=== PATIENT | male | born 1950 | race Two or more races ===

== ENCOUNTER 2016-09-13 20:25 | Observation (INO) | payer OTHER ==
--- NOTE | 2016-09-13 20:59 | CPEKG ---
Heart Rate: 65 RR Interval: 923 P-R Interval: 184 QRSD Interval: 102 QT Interval: 404 QTC Interval: 421 P Quinton: 21 QRS Quinton: 34 T Wave Quinton: 32 EKG Severity - BORDERLINE ECG - EKG Impression: SINUS RHYTHM EKG Impression: BORDERLINE INFERIOR Q WAVES Electronically Signed By: Vanesa Enrique 13-Sep-2016 23:36:50
--- NOTE | 2016-09-13 21:17 | EDPHY ---
H & P Stated Complaint: x 3 days-WATSON, SOB, bilat n/t to hands Time Seen by Provider: 09/13/16 21:13 HPI/ROS: CHIEF COMPLAINT: Chest pain. HISTORY OF PRESENT ILLNESS: This patient is a 66 year old male with a history of CAD with stenting who presents to the Emergency Department complaining of intermittent episodes of chest pain beginning three days prior to arrival. Pain lasts for one to two hours. Today he developed pain about 2 hr prior to presentation.He describes his pain as localized to his left anterior chest without radiation and associated with headache, dyspnea, diaphoresis, and palpitations. His pain is similar to prior episodes that precipitated need for stent placement. He denies nausea, vomiting, fever, cough, or additional complaints. No recent medication changes. No history of blood clots. Medical history also includes diabetes and hypertension. REVIEW OF SYSTEMS: Aside from elements discussed in the HPI, a comprehensive 10-point review of systems was reviewed and is negative. PAST MEDICAL HISTORY: Hypertension, diabetes, CAD with stenting. No anticoagulant use. SOCIAL HISTORY: ; at bedside. PHYSICAL EXAM: VITAL SIGNS: Reviewed by me GENERAL: Well-developed, well-nourished, resting comfortably in no respiratory distress. HEENT: Atraumatic. Eyes: No icterus, no injection. Mouth: moist mucous membranes. No erythema or lesions. Neck: supple with no adenopathy. LUNGS: Clear to auscultation bilaterally, no wheezes, rhonchi or rales. CARDIAC: Regular rate and rhythm, no rubs, murmurs or gallops. ABDOMEN: Soft, nontender, nondistended, bowel sounds normal. BACK: No CVA tenderness. EXTREMITIES: No trauma. No edema. Range of motion is normal throughout. NEURO: Alert and oriented, grossly nonfocal. SKIN: Warm and dry, no rash. PSYCHIATRIC: Normal mentation, no agitation. Portions of this note were transcribed by a medical technologist chemistry. I personally performed a history, physical exam, medical decision making, and confirmed accuracy of information the transcribed note. - Personal History Current Tetanus/Diphtheria Vaccine: Unsure Current Tetanus Diphtheria and Acellular Pertussis (TDAP): Unsure - Medical/Surgical History Hx Asthma: No Hx Chronic Respiratory Disease: No Hx Diabetes: Yes Hx Cardiac Disease: Yes Hx Renal Disease: No Hx Cirrhosis: No Hx Alcoholism: No Hx HIV/AIDS: No Hx Splenectomy or Spleen Trauma: No Other PMH: HTN, DM, high cholesterol, cardiac stent, hernia repair, shoulder surgery, back surgery - Social History Smoking Status: Never smoked Constitutional: Initial Vital Signs Temperature (C) 36.8 C 09/13/16 20:41 Heart Rate 69 09/13/16 20:41 Respiratory Rate 16 09/13/16 20:41 Blood Pressure 176/95 H 09/13/16 20:41 O2 Sat (%) 96 09/13/16 20:41 O2 Delivery Mode Room Air Allergies/Adverse Reactions: No Known Allergies Allergy (Verified 09/13/16 20:39) Home Medications: Medication Instructions Recorded Aspirin [Aspirin 81mg (*)] 81 mg PO DAILY 09/14/16 Insulin Detemir [Levemir Flextouch] 10 - 15 unit SQ HS 09/14/16 Lisinopril [Zestril 20 mg (*)] 20 mg PO DAILY 09/14/16 Lovastatin 40 mg PO DAILY 09/14/16 Metoprolol Tartrate 25 mg PO BID #60 tablet 09/14/16 metFORMIN HCL [Glucophage 500 mg 1,000 mg PO BIDMEAL 09/14/16 (*)] Medical Decision Making - Diagnostics EKG Interpretation: 12-LEAD EKG: Please see the full report in [facility]. My interpretation: Normal sinus rhythm, rate 65; borderline inferior Q waves. Imaging: X-ray: Chest x-ray was obtained. I viewed the images myself on the PACS system. My interpretation of the images is: normal chest. The study was read by Dr. Parish Franco. I discussed the x-ray findings with the patient. Study: CT of the head Indication: Headache Results: CT scan of the head was obtained. The results of the study are: negative. The study was read by the radiologist, Dr. Parish Franco. I viewed the images myself on the PACS system. ED Course/Re-evaluation: Plan for labs, EKG, chest x-ray, and CT of the head. Labs are unremarkable. D-dimer and Troponin are both negative. EKG indicates no ischemic changes. 2229: Imaging results reported to me by Dr. Franco. 324mg PO Aspirin administered. 2238: On reevaluation, the patient reports that his pain has subsided. Repeat BP is within normal ranges. I discussed with the patient my recommendation that he be admitted for cardiac observation given his history. He is agreeable to this. 2240: Consultation with Dr. Ekaterina Lockwood, hospitalist, who accepts admission. Differential Diagnosis: Differential diagnoses for the patient's symptom complex was considered including but not limited to acute coronary syndrome, hypertensive, pulmonary embolism, chest wall pain, pleural inflammation and pulmonary infectious causes. Consult/Admit Bed Type: Dr Gayle Renner, [facility] - Data Points Laboratory Results: Laboratory Results 09/13/16 21:00 09/13/16 21:00 Medications Given: Discontinued Medications Acetaminophen (Tylenol) 650 mg PO Q6HRS PRN PRN Reason: Pain, Mild/Fever, Can Take PO Stop: 03/12/17 23:10 Last Admin: 09/14/16 14:52 Dose: 650 mg Aspirin (Aspirin) 324 mg PO EDNOW ONE Stop: 09/13/16 22:40 Last Admin: 09/13/16 22:46 Dose: 324 mg Insulin Human Lispro (Humalog Lispro) 0 unit SC TIDMEAL COLLEEN PRN Reason: Protocol Stop: 03/13/17 07:59 Last Admin: 09/14/16 12:28 Dose: 2 unit Departure - Departure Disposition: [facility] Inpatient Acute Clinical Impression: Chest pain, Headache Condition: Fair
[2016-09-13 21:48] LABS: INR 1.01 (0.83-1.16); PROTIME(PATIENT) 13.2 SEC (12.0-15.0)
[2016-09-13 21:49] LABS: APTT 31.4 SEC (23.0-38.0)
[2016-09-13 21:50] LABS: ANION GAP 11 mEq/L (8-16); CALCIUM 9.2 mg/dL (8.5-10.4); CARBON DIOXIDE 25 mEq/l (22-31); CHLORIDE 105 mEq/L (97-110); CREATININE 0.8 mg/dL (0.7-1.3); GLOMERULAR FILTRATION RATE > 60; GLUCOSE 173 mg/dL (70-100); POTASSIUM 4.2 mEq/L (3.5-5.2); SODIUM 141 mEq/L (134-144)
[2016-09-13 21:52] LABS: % IMMATURE GRANULYOCYTES 0.3 % (0.0-1.1); ABSOLUTE IMMATURE GRANULOCYTES 0.03 10^3/uL (0.00-0.10); ADD DIFF? NO; ADD MORPH? NO; ADD SCAN? NO; ATYPICAL LYMPHOCYTE FLAG 0 (0-99); FRAGMENT RBC FLAG 0 (0-99); HEMATOCRIT 45.5 % (40.0-51.0); HEMOGLOBIN 15.6 g/dL (13.7-17.5); LEFT SHIFT FLG 0 (0-99); LIPEMIA HEMOLYSIS FLAG 90 (0-99); MEAN CELL HEMOGLOBIN 30.8 pg (27.9-34.1); MEAN CELL HEMOGLOBIN CONCENTR. 34.3 g/dL (32.4-36.7); MEAN CELL VOLUME 89.7 fL (81.5-99.8); PLATELET CLUMPS FLAG 0 (0-99); PLATELET COUNT 220 10^3/uL (150-400); RED BLOOD CELL COUNT 5.07 10^6/uL (4.40-6.38); RED CELL DISTRIBUTION WIDTH 12.5 % (11.5-15.2)
[2016-09-13 22:02] LABS: TROPONIN I < 0.012 ng/mL (0-0.034)
--- NOTE | 2016-09-13 22:08 | DX ---
PA and Lateral Chest Indication: Chest pain Comparison: None Findings: The lungs are clear. No pneumothorax, consolidation, edema or effusion. The descending thor acic aorta is mildly tortuous. The heart size normal. No discernible rib fracture. Minimal bilateral clavicular osteoarthritis. A radiodensity overlying the right humeral head may be a suture anchor. Impression: Clear lungs. No acute process.
--- NOTE | 2016-09-13 22:38 | CT ---
CT Head (Without Contrast) 22:21pm Indication: Headache. Hypertension.. Comparison: None Technique: Standard noncontrast head CT protocol utilizing 5 mm thick collimated slices and field of view of 23 cm. Dose reduction techniques were utilized. Findings: No intracranial hemorrhage, mass lesion, swelling, or extraaxial fluid collection. The vent ricles are normal caliber and midline. Minimal atrophy is evidenced by enlargement of the overlying s ulci and subarachnoid spaces. The guthrie and white matter has normal attenuation. No evidence of ischem ia. The bones are unremarkable. The paranasal sinuses are clear. Impression: Negative. No intracranial hemorrhage or swelling. Comment: Case was discussed with Dr. Enrique at 10:36 p.m. September 13, 2016.
[2016-09-13] MEDS ORDERED: ASPIRIN 81 MG CHEWABLE TAB PO ONE (22:39)
[2016-09-13] MEDS ORDERED: ONDANSETRON 4 MG/2 ML VIAL IVP PRN (23:11)
[2016-09-13] MEDS ORDERED: NITROGLYCERIN 0.4 MG BTL SL PRN (23:11)
[2016-09-13] MEDS ORDERED: D50W 25 GM/50 ML SYR IVP PRN (23:14)
--- NOTE | 2016-09-13 23:52 | PDGENHP ---
History and Physical - Chief Complaint chest pain, headache - History of Present Illness Patient is a 66-year-old male with a history of hypertension, hyperlipidemia, chronic back pain, DM2 on insulin and CAD with 1 previous stent who presents ED with complaint of headache and chest pain. Patient states symptoms started about 3 days ago with intermittent sensation of palpitations in his L chest radiating up into his neck, associated with chest pain and shortness of breath. These symptoms were occurring intermittently in episodes over the past 3 days, but today the intensity increased. Patient has also been experiencing a frontal headache associated with the onset of his cardiac symptoms. He denies any associated dizziness, lightheadedness, nausea or vomiting, but has felt generally weak during this time. Patient has known CAD with PCI x1 about 2 years ago and has since discontinued his DAPT, takes daily low dose aspirin only. He has not had any stress testing since stent placement. He denies any new lower extremity edema, orthopnea or PND . On arrival to the ED, patient was hypertensive, but afebrile and hemodynamically stable. Labs, including CBC, BMP and troponin, were all unremarkable. EKG did not show any evidence of acute ischemia. CT head was obtained given the headache and was unremarkable. CXR was also negative. He was then admitted to the hospitalist service for further management. History Information - Allergies/Home Medication List Allergies/Adverse Reactions: No Known Allergies Allergy (Verified 09/13/16 20:39) Home Medications: Lisinopril [Zestril 40 mg (*)] 05/25/13 [Last Taken Unknown] Lovastatin 05/25/13 [Last Taken Unknown] Metformin HCl [Riomet] 05/25/13 [Last Taken Unknown] Metoprolol Tartrate [Lopressor] 05/25/13 [Last Taken Unknown] Aspirin 09/13/16 [Last Taken Unknown] I have personally reviewed and updated: family history, medical history, social history, surgical history - Past Medical History Additional medical history: HTN. HLD. DM2. CAD s/p PCI x 1 (2014). chronic back pain - Surgical History Additional surgical history: hernia repair. shoulder arthroscopy. lumbar surgery - Family History Additional family history: No family history of cardiac disease. B: HTN, DM2 - Social History Smoking Status: Never smoked Alcohol Use: Rarely Drug Use: None Additional social history: Patient lives with his , originally from [place], retired. Review of Systems ROS: 10pt was reviewed & negative except for what was stated in HPI & below Physical Exam Temp Pulse Resp BP Pulse Ox 36.7 C 60 14 129/82 H 93 09/13/16 23:20 09/13/16 23:20 09/13/16 23:20 09/13/16 23:20 09/13/16 23:20 Constitutional: no apparent distress, appears nourished, not in pain Eyes: PERRL, anicteric sclera, EOMI Ears, Nose, Mouth, Throat: moist mucous membranes, hearing normal, ears appear normal, no oral mucosal ulcers Cardiovascular: regular rate and rhythym, no murmur, rub, or gallop, pulses symmetric bilaterally, No JVD, No edema Peripheral Pulses: 2+: dorsalis-pedis (R), dorsalis-pedis (L) Respiratory: no respiratory distress, no rales or rhonchi, clear to auscultation Gastrointestinal: normoactive bowel sounds, soft, non-tender abdomen, no palpable masses, No guarding, No rebound Genitourinary: no bladder fullness, no bladder tenderness Skin: warm, normal color, no rashes or abrasions, no fluctuance, No mottled Musculoskeletal: full muscle strength, no muscle tenderness, normal joint ROM, no joint effusions Neurologic: AAOx3, sensation intact bilaterally, CN II-XII Intact, No weakness, No numbness Psychiatric: interacting appropriately, not anxious, not encephalopathic, thought process linear Lab Data & Imaging Review 09/13/16 21:00 09/13/16 21:00 WBC 8.83 10^3/uL (3.80-9.50) 09/13/16 21:00 RBC 5.07 10^6/uL (4.40-6.38) 09/13/16 21:00 Hgb 15.6 g/dL (13.7-17.5) 09/13/16 21:00 Hct 45.5 % (40.0-51.0) 09/13/16 21:00 MCV 89.7 fL (81.5-99.8) 09/13/16 21:00 MCH 30.8 pg (27.9-34.1) 09/13/16 21:00 MCHC 34.3 g/dL (32.4-36.7) 09/13/16 21:00 RDW 12.5 % (11.5-15.2) 09/13/16 21:00 Plt Count 220 10^3/uL (150-400) 09/13/16 21:00 MPV 11.0 fL (8.7-11.7) 09/13/16 21:00 Neut % (Auto) 62.8 % (39.3-74.2) 09/13/16 21:00 Lymph % (Auto) 27.2 % (15.0-45.0) 09/13/16 21:00 Culberson % (Auto) 6.7 % (4.5-13.0) 09/13/16 21:00 Eos % (Auto) 2.3 % (0.6-7.6) 09/13/16 21:00 Baso % (Auto) 0.7 % (0.3-1.7) 09/13/16 21:00 Nucleat RBC Rel Count 0.0 % (0.0-0.2) 09/13/16 21:00 Absolute Neuts (auto) 5.55 10^3/uL (1.70-6.50) 09/13/16 21:00 Absolute Lymphs (auto) 2.40 10^3/uL (1.00-3.00) 09/13/16 21:00 Absolute Monos (auto) 0.59 10^3/uL (0.30-0.80) 09/13/16 21:00 Absolute Eos (auto) 0.20 10^3/uL (0.03-0.40) 09/13/16 21:00 Absolute Basos (auto) 0.06 10^3/uL (0.02-0.10) 09/13/16 21:00 Absolute Nucleated RBC 0.00 10^3/uL (0-0.01) 09/13/16 21:00 Immature Gran % 0.3 % (0.0-1.1) 09/13/16 21:00 Immature Gran # 0.03 10^3/uL (0.00-0.10) 09/13/16 21:00 PT 13.2 SEC (12.0-15.0) 09/13/16 21:00 INR 1.01 (0.83-1.16) 09/13/16 21:00 APTT 31.4 SEC (23.0-38.0) 09/13/16 21:00 D-Dimer 0.29 ug/mLFEU (0.00-0.50) 09/13/16 21:00 Sodium 141 mEq/L (134-144) 09/13/16 21:00 Potassium 4.2 mEq/L (3.5-5.2) 09/13/16 21:00 Chloride 105 mEq/L (97-110) 09/13/16 21:00 Carbon Dioxide 25 mEq/l (22-31) 09/13/16 21:00 Anion Gap 11 mEq/L (8-16) 09/13/16 21:00 BUN 19 mg/dL (7-23) 09/13/16 21:00 Creatinine 0.8 mg/dL (0.7-1.3) 09/13/16 21:00 Estimated GFR > 60 09/13/16 21:00 Glucose 173 mg/dL (70-100) H 09/13/16 21:00 Calcium 9.2 mg/dL (8.5-10.4) 09/13/16 21:00 Troponin I < 0.012 ng/mL (0-0.034) 09/13/16 21:00 Visualized and Interpreted Chest x-ray results: Yes Chest X-Ray results: no infiltrate, normal Visualized and Interpreted imaging results: Yes Interpretation: CT head: no acute intracranial abnormalities Visualized and Interpreted EKG results: Yes EKG Interpretation: Positive for: normal sinsus rhythm. Negative for: NS ST wave abnormalities Assessment & Plan Assessment: Patient is a 66/M with known CAD, HTN, DM2, HLD who presents to the ED complaining of chest pain, palpitations, dyspnea and headache. Initial EKG and troponin negative. Plan: # chest pain Patient describes initially palpitations, that are associated with chest pain, dyspnea and headache. EKG does not reveal any arrhythmia or obvious signs of ischemia. Will monitor on telemetry overnight, r/o acs and check TTE and stress in AM. Will also check lipid panel, TSH. # accelerated hypertension On arrival, patient's BP was > 170/90 and he was complaining of a moderately severe frontal headache. CT head ruled out any acute pathology. BP improved without intervention. Will confirm and continue patient's home antihypertensives. # DM2 Glucose slightly elevated on BMP. Will hold this evening's lantus given NPO status and monitor FS with sliding scale coverage. # HLD Cont home med. # dispo: admit to observation unit # full code
[2016-09-14 05:41] LABS: CHOLESTEROL 127 mg/dL (140-220); CHOLESTEROL/HDL RATIO 3.97 RATIO (1.00-4.97); HIGH DENSITY LIPOPROTEIN 32 mg/dL (40-65); LDL/HDL RATIO 1.97 RATIO (1.00-3.64); LOW DENSITY LIPOPROTEIN 63 mg/dL (80-100); NON-HIGH DENSITY LIPOPROTEIN 95 mg/dL (90-129); TRIGLYCERIDE 160 mg/dL (40-150); VERY LOW DENSITY LIPOPROTEINS 32 mg/dL (8-25)
[2016-09-14 05:45] LABS: TROPONIN I < 0.012 ng/mL (0-0.034)
[2016-09-14 08:16] VITALS: BP 139/89; PULSE 58; RESP 18; TEMP 97.6; O2SAT 92
[2016-09-14] MEDS: ACETAMINOPHEN 325 MG TAB PO PRN ×2 (08:19→14:52)
[2016-09-14] MEDS: INSULIN LISPRO 100 UNIT/ML SC SCH ×2 (11:02→12:28)
--- NOTE | 2016-09-14 11:38 | CPR ---
[f rep st] NONINVASIVE CARDIAC PROCEDURE REPORT DATE OF PROCEDURE: 09/14/2016 PROCEDURE: Exercise treadmill test. INDICATION: The patient is a 66-year-old male with a history of coronary artery disease status post stenting approximately 2 years ago. At that time, he complained of palpitations. He was admitted to the hospital with 3 days of intermittent sharp chest discomfort. His symptoms could last 5 minutes and up to 2 hours at a time. He has a history of hypertension, hyperlipidemia, and diabetes. DESCRIPTION OF PROCEDURE: Consent was obtained and the patient was placed on continuous telemetry. His resting EKG revealed sinus bradycardia with a heart rate of 58. He had a p.r.n. interval of 200, QRS duration of 109, and a Q-Tc of 421. There were no ST-T wave changes to suggest ischemia. The p atponcho exercised on the treadmill for just under 10 minutes. He was able to reach 85% of his age-pre dicted maximum heart rate with a heart rate of 132 beats per minute. He was chest pain-free througho ut the procedure. He remained in normal sinus rhythm without any ST-T wave changes to suggest ischem ia. His blood pressure at rest was 196/74, and peaked at 178/78. It returned to baseline within 5 m inutes of recovery. His heart rate returned to baseline within 3 minutes of recovery. PLAN: Low risk exercise treadmill test. /[id number]/MODL
--- NOTE | 2016-09-14 12:11 | ECHO ---
[id number] + + [address] : : [place] [address] : : [phone] + + Adult Echocardiographic Report + ------+ :Name: LARS ELIRyan Date: 09/14/2016 07:48 AM BP: 120/81 mmHg : : Hospital Admission Number: [id number] Hern[place] n: 143: :: 1950 Gender: Male Height: 65 in : :Age: 66 yrs Race: ,[facility] Weight: 170 lb : : : : BSA: 1.8 meters 2 : :History: stent 2yrs ago at [place] : + ------+ MMode/2D Measurements & Calculations IVSd: 1.1 cm RVDd: 3.5 cm FS: 33.5 % Ao root diam: LVPWd: 1.0 cm LVIDd: 4.5 cm EDV(Teich): 3.0 cm LVIDs: 3.0 cm 94.4 ml LA dimension: ESV(Teich): 4.0 cm 35.6 ml EF(Teich): 62.3 % LVLd ap4: 9.3 cm SV(MOD-sp4): EDV(MOD-sp4): 77.0 ml 127.0 ml LVLs ap4: 7.6 cm ESV(MOD-sp4): 50.0 ml EF(MOD-sp4): 60.6 % Normal Measurement Values: + + :LVIDd (3.5-5.7cm) IVSd (0.6-1.1cm) LVPWd (0.6-1.1cm) Aortic Root (2.0-3.7cm)Left Atrium (1.5-4.0cm): :LV Vol(d) (76-115ml) LV Vol(s) (29-48ml) Ejec Fraction (50-65%)PV Ced (0.6- 1.2m/s) TV Ced (0.4-1.0m/s) : :MV E Ced (0.8-1.0m/s)MV A Ced (0.3-1.0m/s)LVOT Ced (0.7-1.2m/s) Asc Ao Ced ( 0.9-1.8m/s) : + + Doppler Measurements & Calculations MV E max ced: Ao V2 max: LV V1 max: PA V2 max: 56.3 cm/sec 141.0 cm/sec 102.0 cm/sec 94.7 cm/sec MV A max ced: Ao max PG: LV V1 max PG: PA max P.5 cm/sec 8.0 mmHg 4.2 mmHg 3.6 mmHg MV E/A: 0.72 MV dec time: 0.20 sec TR max ced: 251.0 cm/sec TR max P.2 mmHg RAP systole: 5.0 mmHg RVSP(TR): 30.2 mmHg Left Ventricle The left ventricle is normal in size and function. There is mild concentric left ventricular hypertrophy. Ejection Fraction = 60%. The left ventricular ejection fraction is calculated at 62.3 %. There is Doppler evidence for diastolic dysfunction. Basal inferior wall moves but does not thicken. Right Ventricle The right ventricle is normal in size and function. Atria The left atrial size is normal. Right atrial size is normal. Mitral Valve The mitral valve is normal in structure and function. There is trace mitral regurgitation. Tricuspid Valve The tricuspid valve is normal in structure and function. There is no tricuspid stenosis. There is mild tricuspid regurgitation. Right ventricular systolic pressure is 30mmHg. Aortic Valve The aortic valve is trileaflet. There is no aortic stenosis. There is no aortic insufficiency. Pulmonic Valve The pulmonic valve is not well visualized. Great Vessels The aortic root is normal size. Pericardium/Pleural There is no pericardial effusion. Conclusion A two-dimensional transthoracic echocardiogram with M-mode and Doppler was performed. (1) Left ventricular systolic ejection fraction was normal (60%) - normal wall motion (2) Mild concentric left ventricular hypertrophy (3) Diastolic dysfunction was noted (4) Normal right ventricular size and function (5) Normal atrial dimensions (6) Physiologic mitral regurgitation (7) Trileaflet aortic valve without sclerosis or insufficiency (8) Mild tricuspid regurgitation - RVSP was 30 mm Hg (9) Poor visualization of the pulmonic valve (10) No comparison echocardiogram Final Reading Physician: Carlton Vieyra signed on 09/14/2016 12:09 PM Ordering Physician: Ekaterina Lockwood Performed By: Alethea Ibrahim
--- NOTE | 2016-09-14 15:03 | GDS ---
[f rep st] DISCHARGE SUMMARY DISCHARGE DIAGNOSES: 1. Chest pain, likely atypical in setting of palpitations. 2. Accelerated hypertension. 3. Type 2 diabetes mellitus. 4. Hyperlipidemia. OBSERVATION COURSE AND STAY BY PROBLEM: Chest pain: The patient was placed on observation, where serial troponins were done that were negative. The patient underwent an exercise stress test on 09/14/2016 that was interpreted as low- risk exercise treadmill stress test. An echocardiogram was done as well that did not reveal any significant pathologic findings. On day of discharge, the patient's pain has resolved. He is not having any palpitations. He has not been noted to have any arrhythmias on the monitor. The patient was seen with a foreign languages professor present. PHYSICAL EXAM ON DAY OF DISCHARGE: VITAL SIGNS: Blood pressure 139/89, pulse 58, respiratory rate 18, O2 sat 92% on room air, temperature afebrile. GENERAL : No acute distress. HEART: S1, S2. LUNGS: Clear. ABDOMEN: Soft. EXTREMITIES: No edema. PERTINENT LABS AND STUDIES: Treadmill stress test done 09/14/2016. Echocardiogram done 09/13/2016, refer to report for details. DISCHARGE MEDICATIONS: Please refer to discharge medication reconciliation in [facility] for full details. New medications on hospital discharge: Metoprolol 25 mg p.o. b.i.d. DISCHARGE INSTRUCTIONS: The patient will be discharged home, where he was instructed to follow up with his primary care provider at the [facility] in 1 week for blood pressure testing. 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 Copy requested to: Nurse Practitioner [facility] in [place], Primary Care Provider /[id number]/MODL MTDD
[2016-09-14] MEDS ORDERED: metFORMIN HCL 500 MG TAB PO SCH (18:00)
[2016-09-14] MEDS ORDERED: INSULIN DETEMIR SQ SCH (21:00)
[2016-09-15] MEDS ORDERED: NON-FORMULARY NEW DRUG (Lovastatin [Lovastatin] 40 MG) PO SCH (09:00)
[2016-09-15] MEDS ORDERED: LISINOPRIL 20 MG TAB PO SCH (09:00)
[2016-09-15] MEDS ORDERED: ASPIRIN 81 MG CHEWABLE TAB PO SCH (09:00)
[2016-09-15] MEDS ORDERED: PRAVASTATIN SODIUM 40 MG TAB PO SCH (09:00)
[2016-09-15] MEDS ORDERED: LISINOPRIL 20 MG PO SCH (09:00)
== END 2016-09-14 14:55 | disposition home or self-care (01) ==
LOC: F1N 23:45
PROVIDERS: ADMIT Internal Medicine; ATTEND Family Medicine
DX: R07.89 Other chest pain (principal); R00.2 Palpitations; I25.10 Atherosclerotic heart disease of native coronary artery without angina pectoris; I10 Essential (primary) hypertension; E11.9 Type 2 diabetes mellitus without complications; E78.5 Hyperlipidemia, unspecified; Z95.5 Presence of coronary angioplasty implant and graft; Z79.82 Long term (current) use of aspirin
CPT/HCPCS: 70450; 71020; 93005; 93017; 93306; 99285; G0378; J1815